=== PATIENT | male | born 1940 | race Caucasian/White ===

== ENCOUNTER → 2017-05-02 | Outpatient (CLI) | payer MEDICARE, BC ==
--- NOTE | 2017-05-02 10:46 | XR ---
EXAMINATION TYPE: XR tibia fibula 2 views LT, XR ankle complete 3 views LT, XR foot complete 3 views LT DATE OF EXAM: 05/02/2017 COMPARISON: NONE HISTORY: 77-year-old male anterior and lateral lower leg pain FINDINGS: Tibia/fibula: No evidence for acute fracture of the proximal to mid tibia or fibula. There is some soft tissue dens ity seen in the subcutaneous fat of the lateral mid leg. Ankle: Mild degenerative spurring about the ankle and mild circumference of soft tissue swelling. Ankle mort ise is congruent with preservation of the distal tibiofibular overlap. Talar dome is intact. Subtalar joint is aligned. No acute fracture or dislocation. Foot: There is mild degenerative spurring at the first MTP joint with bunion formation. Small plantar calca maulik spur. Some ossific densities seen at the origin of the plantar fascia. No acute fracture, sublux ation, or dislocation. COMBINED IMPRESSION: 1. Tibia/fibula: No acute osseous abnormality seen. However, there is some soft tissue density seen i n the subcutaneous fat of the lateral mid leg that could represent varicosities. If there is a focal soft tissue abnormality or thrombosed varicosities are suspected, targeted ultrasound can be conside red. 2. Ankle: Mild degenerative spurring and mild soft tissue swelling. No acute osseous abnormality seen . 3. 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 Small plantar calcaneal spur. Correlate for any symptoms of potential plantar fasciitis. No acute osseous abnormality seen.
== END | disposition home or self-care (01) ==
LOC: RADXRMAIN 09:21
PROVIDERS: ATTEND Family Medicine
DX: M19.072 Primary osteoarthritis, left ankle and foot (principal); M77.32 Calcaneal spur, left foot; M79.89 Other specified soft tissue disorders

== ENCOUNTER → 2019-05-09 | Outpatient (CLI) | payer MEDICARE ==
--- NOTE | 2019-05-09 11:57 | FL ---
EXAMINATION TYPE: FL UGI air w esophagus DATE OF EXAM: 05/09/2019 COMPARISON: NONE HISTORY: Gastric esophageal reflux, dysphagia, and food sticking. TECHNIQUE: A double contrast esophagram and UGI study is performed. 2 minutes and 8 seconds of fluor oscopy time was utilized with 72 fluoroscopic images saved. FINDINGS: The esophagus shows abnormal motility as tertiary contractions are seen in the supine imaging. No ev idence of fracture noted. Small hiatal hernia seen in the supine images. The stomach shows normal distensibility, peristalsis, and mucosal folds. No evidence of any mass or ulcer disease. Mild degree gastroesophageal reflux was seen during real time performance of this stud y. The duodenal bulb, sweep, and proximal small bowel loops are unremarkable. On image 36/72 only a post erior projecting diverticulum is seen. IMPRESSION: 1. Small hiatal hernia. 2. Mild degree gastroesophageal reflux. 3. 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 4. Diverticulum is incidentally seen, likely a small Zenker's diverticulum.
== END | disposition home or self-care (01) ==
LOC: RADUSWWP 08:49
PROVIDERS: ATTEND Family Medicine
DX: K44.9 Diaphragmatic hernia without obstruction or gangrene (principal); K21.9 Gastro-esophageal reflux disease without esophagitis; K22.8 Other specified diseases of esophagus
CPT/HCPCS: 74246

== ENCOUNTER 2019-10-17 08:38 | Day surgery (SDC) | payer MEDICARE ==
[2019-10-14 11:17] VITALS: BMI 26.4
[~2019-10-17 08:38] MED LIST: ACETAMINOPHEN TAB 500 MG TAB PO ONE; DEXAMETHASONE SOD PHOSPHATE 10 MG/ML 1 ML VIAL IV ONE; HEPARIN SODIUM,PORCINE 5,000 UNIT/ML 1 ML VIAL SQ ONE; HYDROmorphone 0.5 MG/0.5 ML SYRINGE IVP PRN; LACTATED RINGERS 1,000 ML IV SCH; MIDAZOLAM 2 MG/2 ML VIAL IV PRN; ONDANSETRON 4 MG/2 ML VIAL IVP ONE; Pre Op ABX Message 1 EACH MISC MISCELLANE ONE
[2019-10-17] MEDS ORDERED: HEPARIN SODIUM,PORCINE 5,000 UNIT/ML 1 ML VIAL ONE (09:08)
[2019-10-17] MEDS ORDERED: ONDANSETRON 4 MG/2 ML VIAL ONE (09:09)
[2019-10-17 09:22] VITALS: TEMP 97.2
[2019-10-17] MEDS ORDERED: NA PHOS,M-B/NA PHOS,DI-BA 133 ML ENEMA RECTAL ONE (09:25)
[2019-10-17] MEDS ORDERED: ACETAMINOPHEN TAB 500 MG TAB ONE (09:52)
--- NOTE | 2019-10-17 10:46 | P.GSHP ---
History of Present Illness H&P Date: 10/17/19 Chief Complaint: Symptomatic hemorrhoids 79-year-old male seen in the office with complaints of hemorrhoidal pain. Patient with history of hemorrhoids in the past. Had hemorrhoid surgery in his 20s. Recent colonoscopy and examination office show induration left posterior hemorrhoidal complex. Patient interested in surgical excision. Intermittent rectal bleeding. Worsening pain over the last several months. Past Medical History Past Medical History: Hypertension Additional Past Medical History / Comment(s): HEMORRHOIDS History of Any Multi-Drug Resistant Organisms: None Reported Past Surgical History: Cholecystectomy Additional Past Surgical History / Comment(s): COLONOSCOPY Past Anesthesia/Blood Transfusion Reactions: No Reported Reaction Smoking Status: Never smoker - Past Family History Mother Family Medical History: No Reported History Medications and Allergies Home Medications Medication Instructions Recorded Confirmed Type lisinopriL [Zestril] 5 mg PO DAILY 10/14/19 10/17/19 History Allergies Allergy/AdvReac Type Severity Reaction Status Date / Time No Known Allergies Allergy Verified 10/17/19 09:05 Surgical - Exam Vital Signs Temp Pulse Resp BP Pulse Ox 97.2 F L 69 18 137/100 97 10/17/19 09:20 10/17/19 09:20 10/17/19 09:20 10/17/19 09:20 10/17/19 09:20 Physical exam: General: Well-developed, well-nourished HEENT: Normocephalic, sclerae nonicteric Abdomen: Nontender, nondistended Extremities: No edema Neuro: Alert and oriented Rectal: No rectal mass, indurated symptomatic hemorrhoid posterior position, no active bleeding Assessment and Plan (1) External hemorrhoid Narrative/Plan: Will proceed with operative hemorrhoidectomy. Risks of bleeding, infection, scarring, stricture, fistula, recurrence, pain reviewed. Patient understands and wishes to proceed. Current Visit: Yes Status: Acute Code(s): K64.4 - RESIDUAL HEMORRHOIDAL SKIN TAGS SNOMED Code(s): 92241548
[2019-10-17] MEDS ORDERED: PROPOFOL 10 MG/ML 20 ML VIAL IV ONE (10:51)
[2019-10-17] MEDS ORDERED: MIDAZOLAM 2 MG/2 ML VIAL ONE (10:51)
[2019-10-17] MEDS ORDERED: fentaNYL (PF) 50 MCG/ML 2 ML AMP ONE (10:51)
[2019-10-17] MEDS ORDERED: KETAMINE 10 MG/ML 20 ML VIAL ONE (10:51)
[2019-10-17] MEDS ORDERED: SODIUM CHLORIDE 0.9% 50 ML with ceFAZolin 2,000 MG IV ONE ×2 (11:10)
[2019-10-17] MEDS ORDERED: BUPIVACAINE (PF) 0.25% 30 ML VIAL SQ ONE (11:13)
[2019-10-17] MEDS ORDERED: GELATIN SPONGE,ABSORB (SMALL) 1 EACH SPONGE TOPICAL ONE (11:29)
[2019-10-17] MEDS ORDERED: NALOXONE 0.4 MG/ML 1 ML VIAL IV PRN (11:46)
[2019-10-17] MEDS ORDERED: HYDROcodone/APAP 5-325MG 1 EACH TAB PO PRN (11:46)
--- NOTE | 2019-10-17 11:57 | P.OP ---
Date of Procedure: 10/17/19 Procedure(s) Performed: PREOPERATIVE DIAGNOSIS: Symptomatic hemorrhoids POSTOPERATIVE DIAGNOSIS: Left posterior hemorrhoidal complex with scarring, posterior fistula PROCEDURE: Operative hemorrhoidectomy with fistulectomy SURGEON: Kely EBL: [place] ANESTHESIA: Local plus sedation COMPLICATIONS: None OPERATIVE PROCEDURE: Patient placed in the prone jackknife position. The patient sedated per anesthesia. Marcaine was used to localize around the posterior and the left perianal region. The patient had an area of scarring along with a hemorrhoidal complex in the left posterior position. This appeared possibly related to previous surgical intervention. We'll was noticed today that was not noticed during his office visit or at the time of his colonoscopy was that there was a small external sinus opening just to the left of midline posteriorly. I was unable to probe that with our smallest probe however this appeared represent a fistulous opening. The anal retractors were utilized. We could not visualize the internal fistulous sinus opening. The hemorrhoidal complex was grasped with an Allis. An elliptical incision was made incorporating the external portion of the suspected fistula. This incision was carried to the anal rectal mucosal border. The subcutaneous tissues were divided using blunt dissection and sharp dissection and electrocautery. As we dissected we identified that there was in fact a fistulous tract. This didn't penetrate through only a small portion of the internal anal sphincter. I would estimate 3-4 mm of internal sphincter musculature was divided in order to fully excise the fistulous tract. This did appear to finish approximately 0.5 cm proximal to the anal rectal mucosal border. This was all incorporated into our hemorrhoidal complex excision. That portion of the dissection took place using the Harmonic scalpel. Prior to our dissection a apical 3-0 chromic stitch was placed at the apex of the hemorrhoidal complex. Using that same 3-0 chromic stitch we closed the mucosa and skin in a running fashion. No bleeding was seen. A Gelfoam was placed along the suture line internally. A sterile outer dressing was applied as well. DISPOSITION: Stable to recovery room
[2019-10-17 12:06] VITALS: RESP 20
[2019-10-17 12:09] VITALS: BP 146/79; PULSE 61
== END 2019-10-17 12:40 | disposition home or self-care (01) ==
LOC: OR 08:38
PROVIDERS: ATTEND Surgery
DX: K64.4 Residual hemorrhoidal skin tags (principal); K60.4 Rectal fistula; K62.89 Other specified diseases of anus and rectum; I10 Essential (primary) hypertension; K08.89 Other specified disorders of teeth and supporting structures; Z86.010 Personal history of colon polyps; Z98.890 Other specified postprocedural states; Z90.49 Acquired absence of other specified parts of digestive tract; Z79.899 Other long term (current) drug therapy; Z98.811 Dental restoration status
CPT/HCPCS: 46258; 88304; J2250; J1644; J1100; J2405; J0690; J3010; J2704

== ENCOUNTER → 2021-01-18 | Outpatient (CLI) | payer MEDICARE ==
--- NOTE | 2021-01-18 10:27 | XR ---
EXAMINATION TYPE: XR shoulder complete LT DATE OF EXAM: 01/18/2021 CLINICAL HISTORY: Pain/stiffness left shoulder and scapula. TECHNIQUE: Three views of the left shoulder are obtained. Two view scapula are obtained. COMPARISON: Bilateral shoulder xray August 27, 2009. FINDINGS: Osseous structures remain demineralized. Mild to moderate narrowing at acromioclavicular ever int redemonstrated. Distal acromion morphology unremarkable. Glenohumeral joint shows stable mild to moderate narrowing. No significant spurring. Visualized ribs are intact. Left scapula shows no acute displaced fracture. Overlying soft tissue is unremarkable. IMPRESSION: As above.
--- NOTE | 2021-01-18 10:30 | XR ---
EXAMINATION TYPE: XR cervical spine comp DATE OF EXAM: 01/18/2021 TECHNIQUE: Frontal, lateral, oblique, and open mouth view of the cervical spine are obtained. HISTORY: M25.512 M50.30 COMPARISON: Cervical spine x-ray September 16, 2009 FINDINGS: Osseous structures are demineralized. The cervical spine is only visualized from C1 thru t he bottom of C6 level on current study. The pre-vertebral soft tissue remain within normal limits. The C1-C2 articulation is within normal limits on the open mouth view. Slight grade 1 retrolisthesis C3 and C4 redemonstrated. Mild to moderate narrowing and spurring C4-C5 and C5-C6 levels is more prom inent from prior study. Suboptimal evaluation of C6-C7 disc space and below this without dedicated sw immer's view. Levoconvex scoliotic curvature centered upper thoracic spine is redemonstrated. Overlyi ng soft tissue is unremarkable. IMPRESSION: As above.
== END | disposition home or self-care (01) ==
LOC: RADXRMAIN 09:41
PROVIDERS: ATTEND Family Medicine
DX: M25.512 Pain in left shoulder (principal); M50.30 Other cervical disc degeneration, unspecified cervical region
CPT/HCPCS: 72050

== ENCOUNTER → 2023-03-21 | Outpatient (CLI) | payer MEDICARE ==
--- NOTE | 2023-03-23 12:39 | CT ---
EXAMINATION TYPE: CT chest wo con DATE OF EXAM: 03/21/2023 COMPARISON: 02/13/2013 HISTORY: nodules CT DLP: 526 mGycm, Automated exposure control for dose reduction was used. CONTRAST: Performed injected with 0 mL of Isovue 300. TECHNIQUE: Axial images were obtained at 5 mm thick sections. Reconstructed images are reviewed on [employer] computer in the coronal plane. FINDINGS: Portion of the thyroid visualized is normal. There is a 0.3 cm peripheral posterior lateral right lung base nodule, series 3 image 43. Some mild thickening measuring 0.4 cm along the major fissure in the right midlung is present. Series 3 image 35. A 0.4 cm punctate nodule just posterior to the major fissure on the right is present. Series 3 image 33. There is a stable 0.6 cm nodule posterior medial right upper lung field. Series 3 image 16. There is an irregular density measuring up to 3.4 x 3.3 cm in greatest dimensions at the lateral righ t apex. Finding is nonspecific. Neoplasm and infectious etiology could be considered. Additional eval uation with PET/CT is recommended. No enlarged mediastinal or hilar adenopathy is evident. The ascending aorta diameter at the level o f the main pulmonary artery is 3.9 cm. The main pulmonary artery diameter at the bifurcation is 3.2 cm. Coronary artery calcification is present. Limited CT sections are obtained through the upper abdomen. Nonobstructing renal stones are present o n the right kidney, largest at the upper pole measures 0.6 cm. IMPRESSION: 1. Irregular density at the right apex. Additional workup with PET CT for possible neoplasm is recomm ended. 2. Nonobstructing right upper pole renal stones.
== END | disposition home or self-care (01) ==
LOC: RADCTMAIN 13:18
PROVIDERS: ATTEND Family Medicine
DX: J98.4 Other disorders of lung (principal); N20.0 Calculus of kidney; R91.1 Solitary pulmonary nodule
CPT/HCPCS: 71250

== ENCOUNTER → 2023-04-06 | Outpatient (CLI) | payer MEDICARE ==
--- NOTE | 2023-04-08 08:44 | PE ---
EXAMINATION TYPE: PET CT fusion skull to thigh DATE OF EXAM: 04/06/2023 CLINICAL INDICATION:Male, 83 years old with history of R91.8; TECHNIQUE: Following the intravenous administration of 12.37 mCi of F-18 FDG, whole body images are performed from the skull base to the midthigh. Images are reviewed on the computer in the coronal, axial, and sagittal planes. Reconstructed rotating images are created on independent workstation and reviewed on the computer. A non-contrast CT is performed in conjunction with the PET scan. Glucose level 84 mg/dL CT DLP: 636 mGycm, Automated exposure control for dose reduction was used. COMPARISON: CT 03/21/2023, PET/CT None, FINDINGS: Mediastinal SUV mean is 1.98. Hepatic parenchyma SUV mean is 2.8. SKULL BASE AND NECK: * Mildly asymmetric uptake within the right or abnormal mucosa max SUV 4.9 on the right and 3.8 on t he left. * Mild uptake within the thyroid gland max SUV is 8.0 on the right and 9.1 on the left. CHEST, MEDIASTINUM, AND HILAR REGION: Multiple FDG avid lymph nodes are seen throughout the mediastinum: Examples include: * Left perihilar axis SUV 8.0, right perihilar max SUV 9.0, a lymph node just above the right upper bronchus max SUV 9.0 with measurements difficult given lack of IV or oral contrast. * Right upper medial lymph nodes with increased metabolic activity is a 9 mm Max SUV 1.9. And a sate llite nodule measuring Max SUV 2.2 which measures 6 mm. * Right upper lung consolidation and groundglass opacities to the periphery max SUV 1.7. ABDOMEN AND PELVIS: No suspicious radiotracer activity. MUSCULOSKELETAL STRUCTURES: No suspicious radiotracer activity. OTHER CT: Atherosclerosis at the carotid bifurcations and arterial vascular chair including the coron henry arteries. Mild gynecomastia changes. Right nonobstructing renal calculi. The gallbladder is surgi murphy absent. The scattered colonic diverticula. Left inguinal fat-containing hernia. IMPRESSION: Radiotracer uptake within scattered mediastinal lymph nodes which are above would be expected for inf ectious/inflammatory process. Given mildly elevated right upper lobe small pulmonary nodules as well as a groundglass opacity with extension to the periphery happens to have low levels FDG activity. Fin dings remaining concerning for malignancy within the mediastinal lymph nodes with indeterminate airsp stephanie opacity extending towards the periphery in the right upper lobe. One of the lymph nodes immediate ly next to the right upper bronchus. Bronchoscopy with tissue sampling of the lymph nodes particularl y the one near the right upper bronchus is recommended for diagnosis.
== END | disposition home or self-care (01) ==
LOC: RADPETMAIN 13:54
PROVIDERS: ATTEND Nurse Practitioner Family
DX: R91.8 Other nonspecific abnormal finding of lung field (principal)
CPT/HCPCS: 78815; A9552

== ENCOUNTER → 2023-08-15 | Outpatient (CLI) | payer MEDICARE ==
[2023-08-15 07:37] LABS: African American GFR (CKD) 71 (>60 ml/min/1.73 sqM); Blood Urea Nitrogen 24 mg/dL (9-20); Non-African American GFR(CKD) 61 (>60 ml/min/1.73 sqM)
--- NOTE | 2023-08-15 10:28 | CT ---
EXAMINATION TYPE: CT chest w con DATE OF EXAM: 08/15/2023 COMPARISON: 03/21/2023 HISTORY: lung nodule CT DLP: 379.1 mGycm Automated exposure control for dose reduction was used. CONTRAST: CT scan of the chest is performed with IV Contrast, patient injected with 100 mL of Isovue 300. FINDINGS: LUNGS: Irregular groundglass density right upper lobe is again noted and appears essentially unchange d and currently measures 3.2 x 2.3 cm. There are also couple of the pleural-based nodules right upper lobe medially measuring up to 5 mm. Right lower lobe pulmonary nodule measures 4 mm image 37. Right middle lobe nodule image 37 measures 5 mm. MEDIASTINUM: There are no greater than 1 cm hilar or mediastinal lymph nodes. No pericardial effusi on is seen. Thoracic aorta is of normal caliber. The heart is not enlarged. UPPER ABDOMEN: Right renal calculi. Right renal cortical cysts. OTHER: No additional significant abnormality is seen. IMPRESSION: 1. No significant change appreciated in pulmonary nodularity as well as irregular groundglass density right upper lobe. While findings could be infectious in nature of malignancy is not excluded. Contin ued follow-up and clinical correlation advised.
== END | disposition home or self-care (01) ==
LOC: RADCTMAIN 06:44
PROVIDERS: ATTEND Internal Medicine
DX: R91.8 Other nonspecific abnormal finding of lung field (principal); J98.4 Other disorders of lung
CPT/HCPCS: 82565; 84520; 71260; 36415; Q9967

== ENCOUNTER → 2024-02-08 | Outpatient (CLI) | payer MEDICARE ==
[2024-02-08 11:55] LABS: African American GFR (CKD) 78 (>60 ml/min/1.73 sqM); Blood Urea Nitrogen 22 mg/dL (9-20); Non-African American GFR(CKD) 68 (>60 ml/min/1.73 sqM)
--- NOTE | 2024-02-08 12:24 | CT ---
CT chest with contrast HISTORY: Follow-up right upper lobe nodule/mass. COMPARISON: 08/15/2023. TECHNIQUE: Multiple axial images were obtained through the thorax following nonionic IV contrast. FINDINGS: The ill-defined focal area of lung consolidation or mass in the right upper lobe is more prominent on the current study. Previously the mass was measured at 3.17 x 2.28 cm and now is 3.47 x 2.63 cm. The re is a right hilar lymph node which has increased in size from 13 mm to 14.7 mm. The findings are plummer spicious for neoplasm and PET scan or tissue sampling is recommended. Groundglass density in the lower lobes is likely reflection of chronic disease or atelectasis. There is no pleural effusion or pneumothorax. The great vessels the chest are normal. Limited scanning through the upper abdomen reveals nonobstructing right renal calcifications. No focal osseous lesions are seen. IMPRESSION: Growing right upper lobe masslike density and growing right hilar lymph node. The findings are highly suspicious for neoplasm and further workup with PET scan and/or tissue sampling is recommended for f urther evaluation. [facility], , 02/08/2024 12:21 PM
== END | disposition home or self-care (01) ==
LOC: RADCTMAIN 11:09
PROVIDERS: ATTEND Internal Medicine
DX: R91.1 Solitary pulmonary nodule (principal); J98.4 Other disorders of lung
CPT/HCPCS: 82565; 84520; 71260; 36415; Q9967

== ENCOUNTER → 2024-02-28 | Outpatient (CLI) | payer MEDICARE ==
--- NOTE | 2024-03-01 14:33 | PE ---
EXAMINATION TYPE: PET CT fusion skull to thigh DATE OF EXAM: 02/28/2024 CLINICAL INDICATION:Male, 84 years old with history of R91.8 LUNG MASS; TECHNIQUE: Following the intravenous administration of 11.4 mCi of F-18 FDG, whole body images are performed from the skull base to the midthigh. Images are reviewed on the computer in the coronal, a xial, and sagittal planes. Reconstructed rotating images are created on independent workstation and reviewed on the computer. A non-contrast CT is performed in conjunction with the PET scan. Glucose level 85 mg/dL CT DLP: 667.01 mGycm, Automated exposure control for dose reduction was used. COMPARISON: CT None, PET/CT 04/06/2023, MRI: None FINDINGS: Mediastinal SUV mean is 2.0. Hepatic parenchyma SUV mean is 2.7. SKULL BASE AND NECK: * Mildly asymmetric uptake within the right mucosa max SUV 4.7, previously 4.9 on the right and 3.5, previously 3.8 on the left. This is likely physiologic. * Mild uptake within the thyroid gland max SUV is 8.1, previously 8.0 on the right and 8.8, previous ly 9.1 on the left. CHEST, MEDIASTINUM, AND HILAR REGION: Multiple FDG avid lymph nodes are seen throughout the mediastinum: Examples include: * Left perihilar max SUV 9.7, previously 8.0, right perihilar max SUV 11.3, previously 9.0, a lymph node just above the right upper bronchus max SUV 10.5, previously 9.0 with measurements difficult giv en lack of IV or oral contrast. * Right upper medial lymph nodes with increased metabolic activity is a 9 mm Max SUV 2.0, previously 1.9 and a satellite nodule measuring Max SUV 1.6, previously 2.2 which measures 6 mm. * Right upper lung consolidation and groundglass opacities to the periphery max SUV 1.9, previously 1.7. ABDOMEN AND PELVIS: No suspicious radiotracer activity. MUSCULOSKELETAL STRUCTURES: No suspicious radiotracer activity. OTHER CT: Atherosclerosis at the carotid bifurcations and arterial vascular chair including the coron henry arteries. Mild gynecomastia changes. Right nonobstructing renal calculi. The gallbladder is surgi murphy absent. The scattered colonic diverticula. Left inguinal fat-containing hernia. Similar jaison danyel deformity in the thoracic spine. IMPRESSION: Increasing uptake within scattered mediastinal lymph nodes concerning for progression of metastatic d isease. Right upper lobe consolidation remains with low levels FDG activity. [facility], , 03/01/2024 2:30 PM
== END | disposition home or self-care (01) ==
LOC: RADPETMAIN 11:39
PROVIDERS: ATTEND Internal Medicine
DX: R91.8 Other nonspecific abnormal finding of lung field (principal); R93.7 Abnormal findings on diagnostic imaging of other parts of musculoskeletal system
CPT/HCPCS: 78815; A9552